=== PATIENT | male | born 1940 | race Caucasian/White ===

== ENCOUNTER 2016-09-12 07:29 | Day surgery (SDC) | payer OTHER, BC ==
[2016-09-05 15:26] VITALS: BMI 27.2
[2016-09-12 07:53] LABS: URINE APPEARANCE CLEAR; URINE BILIRUBIN NEGATIVE (NEGATIVE); URINE COLOR YELLOW; URINE GLUCOSE (UA) NEGATIVE (NEGATIVE); URINE KETONE NEGATIVE (NEGATIVE); URINE LEUK ESTERASE NEGATIVE (NEGATIVE); URINE NITRITE NEGATIVE (NEGATIVE); URINE PROTEIN NEGATIVE (NEGATIVE); URINE UROBILINOGEN NEGATIVE E.U./dl (0.2-1.0)
[2016-09-12 07:57] LABS: URINE BLOOD 1+ (NEGATIVE)
[2016-09-12 07:58] LABS: URINE MUCUS FEW; URINE RBC <1 /hpf (0-3); URINE WBC <1 /hpf (3-5)
[2016-09-12] MEDS ORDERED: ROPIVACAINE HCL 0.5% 30ML VIAL ONE (08:54)
[2016-09-12] MEDS ORDERED: MIDAZOLAM HCL 2 MG/2 ML SINGLE DOSE VIAL ONE ×3 (08:55→09:28)
--- NOTE | 2016-09-12 09:09 | HP ---
[facility] - Chief Complaint Chief Complaint: left shoulder pain - Past Medical History Allergies/Adverse Reactions: Allergies Allergy/AdvReac Type Severity Reaction Status Date / Time No Known Drug Allergies Allergy Verified 09/05/16 15:26 - Current Medications Current Medications: Medication Instructions Recorded Aspirin [Aspirin EC] 81 mg PO DAILY 09/05/16 Ibuprofen 600 mg PO TID PRN 09/05/16 Omeprazole 40 mg PO DAILY 09/05/16 Simvastatin 20 mg PO DAILY 09/05/16 Hydrocodone/Acetaminophen 1 each PO Q6H #40 tablet MDD 4 09/12/16 [Hydrocodon-Acetaminoph 7.5-325] Satellite Physical Exam - Physical Examination Vital Signs: Vital Signs Period Temp Pulse Resp BP Sys/Matson Pulse Ox Last 24 Hr 97.5 F 60 20 137/77 96 General Appearance: Well Nourished, Well Developed, Alert & Oriented x3 ENT: Clear Lung: Normal air movement Heart: Regular rate & rhythm Extremities: Other (left shoulder- +ttp, decr rom, +empty can, nvi MRI + rct) Neurological: Intact, Alert, Oriented Satellite Impression/Plan - Impression/Plan Impression: left shoulder rct Operative Procedure: left shoulder arthroscopy rcr, sad Date to be Performed: 09/12/16
[2016-09-12] MEDS ORDERED: PROPOFOL 20 ML ONE ×2 (09:28→10:16)
[2016-09-12] MEDS ORDERED: ROCURONIUM BROMIDE 50 MG/5 ML VIAL ONE (09:28)
[2016-09-12] MEDS ORDERED: DEXAMETHASONE SOD PHOSPHATE 4 MG/1 ML VIAL ONE (09:28)
[2016-09-12] MEDS ORDERED: KETOROLAC TROMETHAMINE 30 MG/1 ML VIAL ONE (09:28)
[2016-09-12] MEDS ORDERED: ceFAZolin SODIUM 1 GM VIAL ONE (09:28)
[2016-09-12] MEDS ORDERED: SODIUM CHLORIDE 0.9% P/F 10 ML VIAL IJ ONE (09:28)
[2016-09-12] MEDS ORDERED: ceFAZolin SODIUM 1 GM VIAL IVPB ONE (10:01)
--- NOTE | 2016-09-12 11:45 | OP ---
Operative Note - Note: Operative Date: 09/12/16 Pre-Operative Diagnosis: left shoulder RTC tear, subacromial impingement Operation: left shoulder arthroscopy, subacromial decompression, mini open RTC repair Implants: Arthrex Speed Bridge anchors, fiber wire Surgeon: Mitchell Coyle Strategic Accounts Manager: Chuck Toribio Anesthesiologist/DANCE THERAPIST: Maurice Zavala Jr. Anesthesia: General, Local Estimated Blood Loss (mls): 50 Blood Volume Replaced (mls): 0 Fluid Volume Replaced (mls): 1,000 Operative Report Dictated: Yes
--- NOTE | 2016-09-12 12:54 | OP ---
DATE OF OPERATION: 09/12/2016 PREOPERATIVE DIAGNOSIS: Left shoulder rotator cuff tear and subacromial impingement. POSTOPERATIVE DIAGNOSIS: Left shoulder rotator cuff tear and subacromial impingement. PROCEDURE: Left shoulder arthroscopy, subacromial decompression, and mini open rotator cuff repair, and arthroscopic synovectomy. SURGEON: Mitchell Coyle MD GENERAL EXPEDITOR: ETIENNE Perkins; Maurice Zavala CRNA; and Tang Huitron MD ANESTHESIA: Left interscalene block and LMA anesthesia. DRAINS: None. COMPLICATIONS: None. BLOOD LOSS: Minimal. BLOOD GIVEN: None. FLUID REPLACEMENT: 1000 mL Plasmalyte. DESCRIPTION OF PROCEDURE: This patient is a 76-year-old male with preoperative diagnosis of a large acute rotator cuff tear and bony subacromial impingement. After understanding the potential risks, complications, alternatives, and benefits to surgery versus nonsurgical treatment, the patient elected to undergo this procedure. The patient went to the operating room. Peripheral IV placed, IV sedation given. Ancef 1 g was given IV and left interscalene block was performed. He was placed into the beach chair position with ample padding throughout. The left upper extremity was prepped and draped in sterile fashion. Bony landmarks were marked out with a marking pen and posterior portal established. A diagnostic glenohumeral arthroscopy was performed. The patient was seen to have a completely torn biceps tendon, therefore an anterior portal was established, green cannula introduced the joint, and a shaver was used to debride the biceps tendon. The patient's labrum looked good. There was mild osseous in the glenoid. The humeral head looked good. The patient had a complete rotator cuff tear, a lot of intraarticular synovitis which was debrided from the glenohumeral side. Next our attention was turned to the subacromial space. The patient had a tremendous amount of inflammatory bursitis. A lateral portal was established under direct visualization with a spinal needle. A No. 15 scalpel blade and a green cannula were introduced into the joint. Extensive debridement and soft tissue bursectomy were performed with the Arthrex wand. This revealed a large subacromial bony spur. This was taken down with a 5.5-mm oval bur and the shaver. Next our attention was turned to the rotator cuff. The patient was seen to have a large complete rotator cuff tear that required some debridement as well. A rasp was introduced into the joint to mildly decorticate the landing pad for the rotator cuff. Lateral bursectomy, subdeltoid bursectomy were performed. Under direct visualization, 3 FiberWire retraction sutures were placed with the Scorpio needle passer. Next, the arthroscopy equipment was removed. The lateral portal was extended with a No. 15 scalpel blade. Subcutaneous hemostasis was achieved with Bovie cautery. The Gelpi and Leidy retractors were placed into the wound. Additional bursectomy was performed. We were able to directly visualize the rotator cuff. It was further mobilized with a periosteal elevator. It was overall quite a large tear. It retracted to the medial edge of the glenoid and was about the size of a silver dollar. We were able to establish the anterior and posterior margins, and then we put in the 2 medial row bone anchors of the SpeedBridge. We then, using the Scorpio needle passer, passed through the FiberTape through the rotator cuff. Next we brought 2 tails through another suture anchor and put it through a more distal anterior aspect of the humerus and then the other 2 sutures using a more distal posterior aspect of the humerus. Overall, it came down quite nicely. The rotator cuff was well approximated to proximal humerus, moved as a unit with the humerus. The area was copiously irrigated and washed out. Closure was done with 0 Vicryl to reapproximate the deltoid fascia. Vicryl 2-0 was used in the deep dermal layer. Final skin reapproximation was done with a running subcuticular 3-0 V-Loc. It was then covered with Steri-Strips. The anterior and posterior portals were closed with 3-0 nylon. Aquacel dressing was applied. The patient was placed into a shoulder immobilizer. He was extubated, brought down out of the beach chair position. He was stable throughout the case. There were no complications. Blood loss was minimal, and he was brought to ambulatory recovery in stable condition. Total operative time was about 1 hour. Lena [id number]
[2016-09-12] MEDS ORDERED: oxyCODONE HCL 5 MG TABLET PO PRN (13:49)
[2016-09-12] MEDS ORDERED: ONDANSETRON 4 MG/2 ML VIAL IVPUSH PRN (13:49)
[2016-09-12] MEDS ORDERED: LACTATED RINGERS SOLUTION 1,000 ML IV SCH (14:00)
[2016-09-12 14:32] VITALS: PULSE 55
[2016-09-12 14:38] VITALS: TEMP 97.8
[2016-09-12 15:19] VITALS: BP 116/71
--- NOTE | 2016-09-14 12:51 | PATH ---
Surgical Pathology Report Patient Name: ZACHARY DE LA ROSA Med. Rec. #: [id number] /Age/Gender: 1940 (Age: 76) / M Account: [id number] Location: [facility] SURGICAL Taken: 09/12/2016 Received: 09/12/2016 Reported: 09/14/2016 Physicians: Mitchell Coyle M.D. Specimen(s) Received SHAVINGS LEFT SHOULDER Clinical History Tear left shoulder Final Diagnosis SOFT TISSUE, LEFT SHOULDER, ARTHROSCOPIC SHAVINGS: SYNOVIUM AND FIBROCARTILAGE WITH MYXOHYALINE DEGENERATION. FRAGMENTS OF UNREMARKABLE BONE AND SKELETAL MUSCLE. Electronically Signed Zachary Cronin M.D. Gross Description Received in formalin, labeled "left shoulder shavings" is a 5.5 x 3.5 x 0.7 cm aggregate of tiwari-yellow soft tissue fragments. A contact center representative portion is submitted in one cassette. /09/12/201609/12/2016
== END 2016-09-12 15:48 | disposition home or self-care (01) ==
LOC: JASU-SURG 07:29
PROVIDERS: ATTEND Orthopaedic Surgery
PROC: 0RBK4ZZ Excision of Left Shoulder Joint, Percutaneous Endoscopic Approach (ICD-10-PCS; principal; 2016-09-12 09:30)
PROC: 0LQ20ZZ Repair Left Shoulder Tendon, Open Approach (ICD-10-PCS; 2016-09-12 09:30)
DX: M75.42 Impingement syndrome of left shoulder (principal); M75.102 Unspecified rotator cuff tear or rupture of left shoulder, not specified as traumatic; M65.812 Other synovitis and tenosynovitis, left shoulder
CPT/HCPCS: 81003; 81015; 88304-TC; 94760

== ENCOUNTER 2022-01-27 14:58 | Emergency (ER) | payer OTHER, BC ==
[2022-01-27 15:05] VITALS: BP 143/100; PULSE 83; TEMP 98.3; BMI 27.3
[2022-01-27] MEDS ORDERED: DIPHTH,PERTUSS(ACELL),TET 0.5 ML DISP.SYRIN IM ONE (15:14)
== END 2022-01-27 18:17 | disposition home or self-care (01) ==
LOC: JERFT 14:58
PROC: 0JQ10ZZ Repair Face Subcutaneous Tissue and Fascia, Open Approach (ICD-10-PCS; principal; 2022-01-27)
PROC: 3E0234Z Introduction of Serum, Toxoid and Vaccine into Muscle, Percutaneous Approach (ICD-10-PCS; 2022-01-27)
DX: S01.419A Laceration without foreign body of unspecified cheek and temporomandibular area, initial encounter (principal)
CPT/HCPCS: 12011-25; 70450-TC; 90471; 90715; 99284-25